=== PATIENT | male | born 1980 ===

== ENCOUNTER → 2019-01-10 | Outpatient (CLI) | payer OTHER | LOC: MHCPAIN 11:33 | DX: G89.29 Other chronic pain (principal); M47.812 Spondylosis without myelopathy or radiculopathy, cervical region; R51 Headache | CPT/HCPCS: G0463 ==

== ENCOUNTER → 2019-01-30 | Outpatient (CLI) | payer OTHER | LOC: MHCPAIN 11:45 | DX: M47.812 Spondylosis without myelopathy or radiculopathy, cervical region (principal); M54.12 Radiculopathy, cervical region ==

== ENCOUNTER → 2019-02-20 | Outpatient (CLI) | payer OTHER | LOC: MHCPAIN 08:46 | DX: G89.29 Other chronic pain (principal); M47.812 Spondylosis without myelopathy or radiculopathy, cervical region | CPT/HCPCS: G0463 ==

== ENCOUNTER → 2019-03-13 | Outpatient (CLI) | payer OTHER | LOC: MHCPAIN 10:47 | DX: M54.2 Cervicalgia (principal) ==

== ENCOUNTER → 2019-04-17 | Outpatient (CLI) | payer OTHER | LOC: MHCPAIN 09:59 | DX: R51 Headache (principal); M47.812 Spondylosis without myelopathy or radiculopathy, cervical region | CPT/HCPCS: G0463 ==

== ENCOUNTER → 2019-04-27 | Outpatient (CLI) | payer OTHER | LOC: MHCPAIN 14:09 | DX: M54.2 Cervicalgia (principal) | CPT/HCPCS: J1100; J2250; J3010 ==

== ENCOUNTER → 2019-06-20 | Outpatient (CLI) | payer OTHER | LOC: MHCPAIN 07:47 | DX: R51 Headache (principal); G89.29 Other chronic pain | CPT/HCPCS: G0463 ==